=== PATIENT | female | born 1995 | race Caucasian/White ===

== ENCOUNTER 2018-08-31 12:05 | Emergency (ER) | payer OTHER ==
--- NOTE | 2018-08-31 13:17 | UC ---
Palpitation/Dysrhythmia HP - HPI Summary HPI Summary: 23-year-old woman comes in with a chief complaint of palpitations. Patient reports that yesterday at 11:30 AM while at work sitting down she started having some skipped beats. During the time she had some chest pressure and fatigue and felt short of breath. she was sweaty but she wasn't sure if that is because she was anxious. She left work and went home and fell asleep at 1 PM. She woke up at 4 PM with no more symptoms. Patient's had palpitations the past however she's never had associated symptoms with them. No pedal edema no calf tenderness. No family history of personal history of DVT or pulmonary embolus. She does not take any medications has not been sick recently. Patient also reports that the last several months she's had intermittent left ear symptoms of fullness in the ear and ringing and occasional spinning dizziness. She also wakes up each morning the rhinorrhea. She has not taken any antihistamines. - History of Current Complaint Chief Complaint: UCGeneralIllness Stated Complaint: CHEST TIGHTNESS Time Seen by Provider: 08/31/18 12:49 Hx Last Menstrual Period: 08/26 Pain Intensity: 4 - Allergy/Home Medications Allergies/Adverse Reactions: Allergies Allergy/AdvReac Type Severity Reaction Status Date / Time No Known Allergies Allergy Verified 08/31/18 12:36 Home Medications: Home Medications NK [No Home Medications Reported] 08/31/18 [History Confirmed 08/31/18] PMH/Surg Hx/FS Hx/Imm Hx Previously Healthy: Yes - Surgical History Surgical History: None - Family History Known Family History: Positive: Non-Contributory - Social History Alcohol Use: Occasionally Substance Use Type: None Smoking Status (MU): Never Smoked Tobacco Review of Systems All Other Systems Reviewed And Are Negative: Yes Constitutional: Positive: Fatigue - SEE HPI Skin: Positive: Negative Eyes: Positive: Negative ENT: Positive: Ear Ache, Sinus Congestion, Other - SEE HPI Respiratory: Positive: Shortness Of Breath Cardiovascular: Positive: Palpitations, Chest Pain Gastrointestinal: Positive: Negative Motor: Positive: Negative Neurovascular: Positive: Negative Musculoskeletal: Positive: Negative. Negative: Calf Tenderness, Edema Neurological: Positive: Negative Psychological: Positive: Negative Is Patient Immunocompromised?: No Physical Exam Triage Information Reviewed: Yes Appearance: Well-Appearing, No Pain Distress, Well-Nourished Vital Signs: Initial Vital Signs Temp 99.2 F 08/31/18 12:30 Pulse 87 08/31/18 12:30 Resp 18 08/31/18 12:30 BP 126/77 08/31/18 12:30 Pulse Ox 100 08/31/18 12:30 Vital Signs Reviewed: Yes Eye Exam: Normal Eyes: Positive: Conjunctiva Clear ENT: Positive: Pharynx normal, TM dull - LEFT Neck: Positive: Supple Respiratory: Positive: Lungs clear, Normal breath sounds, No respiratory distress Cardiovascular: Positive: RRR Musculoskeletal Exam: Normal Musculoskeletal: Positive: Strength Intact, ROM Intact, No Edema - NO CALF TENDERNESS Neurological: Positive: Alert Psychological Exam: Normal Psychological: Positive: Age Appropriate Behavior Skin Exam: Normal Diagnostics - EKG Cardiac Rate: NL - AT 1311 Cardiac Rhythm: Sinus: Normal - 99BPM Ectopy: None ST Segment: Normal Palpitations Course/Dx - Course Course Of Treatment: Patient Name: ORI KINGSTON Medical Record#: [id number] Ordering Physician: Manuel Rice MD Acct.#: [id number] : 1995 Age: 23 Sex: F Location: [facility] Exam Date: 08/31/18 1306 ADM Status: REG ER Order Information: CHEST PA LAT 2 VWS Accession Number: [id number] CPT: 34507 INDICATION: Shortness of breath. Chest pain. COMPARISON: No relevant prior exams available on the [facility] [place]. TECHNIQUE: Dual energy PA and routine lateral views of the chest were obtained. REPORT: Elevated lung volumes. Clear lungs and pleural spaces. Negative for pneumothorax. The heart, pulmonary vasculature, and mediastinal contours are unremarkable. Unremarkable osseous structures and soft tissue contours. IMPRESSION: #. Elevated lung volumes may reflect obstructive lung disease or simply exuberant inspiratory effort for examination. #. No evidence for acute intrathoracic disease. <Electronically signed by Gerhard Ghotra MD in OV> 08/31/18 1327 I discussed the x-ray and EKG with the patient. At this time the patient has no chest pain shortness of breath or fatigue or palpitations. Overall plan is to have her follow-up with cardiology. Today a CRP CBC CMP and magnesium and TSH were all drawn. I let the patient know if she gets any more symptoms with palpitations and any symptoms such as chest pain shortness of breath she needs to go to the emergency department right away. For the chronic left ear ringing with occasional vertigo tried [id number] antihistamine. Because of the duration of the symptoms also planning on an ENT referral. - Differential Dx/Diagnosis Provider Diagnosis: Palpitations, Tinnitus of left ear, Left serous otitis media Discharge - Sign-Out/Discharge Documenting (check all that apply): Patient Departure All imaging exams completed and their final reports reviewed: Yes - Discharge Plan Condition: Stable Disposition: HOME Patient Education Materials: Heart Palpitations (ED), Tinnitus (ED), Serous Otitis Media (ED) Referrals: Kami Thomas MD [Medical Doctor] - Missael Price MD [Medical Doctor] - [facility] [Provider Group] [facility] [Outside] Additional Instructions: FOLLOW UP WITH CARDIOLOGY, DR THOMAS. FOLLOW UP WITH ENT, DR PRICE. GO TO THE EMERGENCY DEPARTMENT IF YOUR CONDITION WORSENS; CHEST PAIN, SHORTNESS OF BREATH, YOU FEEL LIKE YOU MAY PASS OUT OR ANY QUESTIONS OR CONCERNS. - Billing Disposition and Condition Condition: STABLE Disposition: Home
[2018-08-31 15:01] VITALS: BP 121/78
[2018-08-31 19:17] LABS: ABS Basophils 0.1 10^3/ul (0-0.2); ABS Lymphocytes 1.6 10^3/ul (1.0-4.8); ABS Monocytes 0.5 10^3/ul (0-0.8); ABS Neutrophils 4.9 10^3/ul (1.5-7.7); Eosinophil % 0.6 %; Hematocrit 40 % (35-47); Hemoglobin 13.4 g/dL (12.0-16.0); Lymphocyte % 22.6 %; Mean Corpuscular HGB Conc 33 g/dL (31-36); Mean Corpuscular Hemoglobin 31 pg (27-31); Mean Corpuscular Volume 92 fL (80-97); Mean Platelet Volume 8.9 fL (7.4-10.4); Platelet Count 304 10^3/uL (150-450); Red Blood Count 4.35 10^6 /uL (3.70-4.87); Red Cell Distribution Width 13 % (10.5-15); White Blood Count 7.2 10^3/uL (3.5-10.8)
[2018-08-31 19:39] LABS: TSH (Thyroid Stimulating Horm) 0.75 mcIU/mL (0.34-5.60)
[2018-08-31 19:57] LABS: Albumin 5.4 g/dL (3.2-5.2); Anion Gap 9 mmol/L (2-11); CO2 Carbon Dioxide 27 mmol/L (22-32); Calcium 10.2 mg/dL (8.6-10.3); Chloride 101 mmol/L (101-111); Magnesium 2.1 mg/dL (1.9-2.7); Potassium 3.6 mmol/L (3.5-5.0); Sodium 137 mmol/L (135-145)
[2018-08-31 20:03] LABS: ALT 21 U/L (7-52); AST 21 U/L (13-39); Alkaline Phosphatase 51 U/L (34-104); BUN/Creatinine Ratio 14.7 (8-20); Blood Urea Nitrogen 11 mg/dL (6-24); C Reactive Protein < 1.00 mg/L (<8.01); EGFR African American 115.9 (>60); EGFR Non-African American 95.8 (>60); Globulin 2.7 g/dL (2-4); Glucose 82 mg/dL (70-100); Total Protein 8.1 g/dL (6.4-8.9)
--- NOTE | 2018-09-01 07:24 | UC ---
- Progress Note Progress Note: LAB RESULTS: CBC, CMP: Slightly elevated albumin at 5.4. Otherwise within normal limits. Further testing is pending to evaluate palpitations. MDM: Patient with palpitations seen on 08/31/18. No change in treatment at this time. Patient will schedule a cardiology follow-up. Miguel Soto MD Course/Dx - Diagnoses Provider Diagnoses: Palpitations, Tinnitus of left ear, Left serous otitis media Discharge - Sign-Out/Discharge Documenting (check all that apply): Post-Discharge Follow Up All imaging exams completed and their final reports reviewed: Yes - Discharge Plan Condition: Stable Disposition: HOME Patient Education Materials: Heart Palpitations (ED), Tinnitus (ED), Serous Otitis Media (ED) Referrals: [facility] [Provider Group] [facility] [Outside] Missael Price MD [Medical Doctor] - Kami Thomas MD [Medical Doctor] - Additional Instructions: FOLLOW UP WITH CARDIOLOGY, DR THOMAS. FOLLOW UP WITH ENT, DR PRICE. GO TO THE EMERGENCY DEPARTMENT IF YOUR CONDITION WORSENS; CHEST PAIN, SHORTNESS OF BREATH, YOU FEEL LIKE YOU MAY PASS OUT OR ANY QUESTIONS OR CONCERNS. - Billing Disposition and Condition Condition: STABLE Disposition: Home
== END 2018-08-31 15:10 | disposition home or self-care (01) ==
LOC: UCEAST 12:05
DX: R00.2 Palpitations (principal); H93.12 Tinnitus, left ear; H65.92 Unspecified nonsuppurative otitis media, left ear
CPT/HCPCS: 36415; 71046; 80053; 83735; 84443; 85025; 86140; 93005; 99201; G0463

== ENCOUNTER 2019-01-26 13:46 | Emergency (ER) | payer OTHER ==
--- NOTE | 2019-01-26 13:56 | UC ---
Lower Extremity/Ankle HPI - HPI Summary HPI Summary: 23 yo female presents with LEFT 4th toe injury. She tells me that last night she was at the gym and accidentally jammed her 4th toe against a dumbbell. Since that time has had pain and bruising. Pain is worse with weight bearing and ambulation. - History of Current Complaint Stated Complaint: TOE INJURY Time Seen by Provider: 01/26/19 13:56 Hx Obtained From: Patient Hx Last Menstrual Period: 08/26 Onset/Duration: Sudden Onset Severity Initially: Mild Severity Currently: Mild Pain Intensity: 4 Pain Scale Used: 0-10 Numeric - Allergies/Home Medications Allergies/Adverse Reactions: Allergies Allergy/AdvReac Type Severity Reaction Status Date / Time No Known Allergies Allergy Verified 01/26/19 13:55 PMH/Surg Hx/FS Hx/Imm Hx - Additional Past Medical History Additional PMH: None - Surgical History Surgical History: None - Family History Known Family History: Positive: Non-Contributory - Social History Lives: With Family Alcohol Use: Occasionally Substance Use Type: None Smoking Status (MU): Never Smoked Tobacco Review of Systems All Other Systems Reviewed And Are Negative: No Constitutional: Positive: Negative Skin: Positive: Negative Respiratory: Positive: Negative Cardiovascular: Positive: Negative Neurovascular: Positive: Negative Musculoskeletal: Positive: Other: - Toe injury Neurological: Positive: Negative Psychological: Positive: Negative Physical Exam - Summary Physical Exam Summary: GENERAL: NAD. WDWN. No pain distress. SKIN: No rashes, sores, lesions, or open wounds. CHEST: No accessory muscle use. Breathing comfortably and in no distress. CV: Pulses intact PT and DP. Cap refill <2seconds MSK: LEFT 4th toe: Mild TTP about PIP of 4th toe with overlying ecchymosis. FROM. NTTP MCP or MT. No open wound. NEURO: Alert. Sensations intact and symmetric B/L LEs PSYCH: Age appropriate behavior. Triage Information Reviewed: No Vital Signs: Vital Signs: Temp Pulse Resp BP Pulse Ox 98.8 F 85 16 101/65 98 01/26/19 13:55 01/26/19 13:55 01/26/19 13:55 01/26/19 13:55 01/26/19 13:55 Vital Signs Reviewed: Yes Diagnostics - Radiology Toe XR Radiology Interpretation Completed By: Radiologist Summary of Radiographic Findings: IMPRESSION: NO EVIDENCE FOR FRACTURE. Lower Extremity Course/Dx - Course Course Of Treatment: XR as above. Suspect contusion/sprain. Toe was julianna taped and pt was provided with a post-op shoe to use for comfort. Advised to rest, ice, and elevate. May take tylenol/ibuprofen for discomfort as directed - Differential Dx/Diagnosis Provider Diagnosis: Toe contusion Discharge ED - Sign-Out/Discharge Documenting (check all that apply): Patient Departure All imaging exams completed and their final reports reviewed: Yes - Discharge Plan Condition: Stable Disposition: HOME Patient Education Materials: Foot Contusion (ED) Referrals: No Primary Care Phys,NOPCP [Primary Care Provider] - Additional Instructions: If you develop a fever, shortness of breath, chest pain, new or worsening symptoms - please call your PCP or go to the ED immediately. Your X-Ray today did not show a fracture Please rest, ice, and elevate the area intermittently throughout the day Julianna tape the toe and use the post-op shoe for comfort - Billing Disposition and Condition Condition: STABLE Disposition: Home
[2019-01-26 14:01] VITALS: BP 101/65
== END 2019-01-26 14:52 | disposition home or self-care (01) ==
LOC: UCEAST 13:46
DX: S90.122A Contusion of left lesser toe(s) without damage to nail, initial encounter (principal); W23.0XXA Caught, crushed, jammed, or pinched between moving objects, initial encounter; Y92.39 Other specified sports and athletic area as the place of occurrence of the external cause
CPT/HCPCS: 99212; G0463